=== PATIENT | male | born 1970 | race Asian ===

== ENCOUNTER 2024-10-11 15:25 | Outpatient (AMB) | payer BC, MEDICAID, SELFPAY ==
--- OUTSIDE RECORDS SUMMARY | 2024-10-11 15:28 | XMS_ITS | Encounter Summary ---
Author Organization [facility] Address [address] [place] [address] Care Team Providers Care Meteorological Aide Name Role Phone Pcp, No Primary Care Provider Unavailabl e Reason for Visit * Reason Comments Medication Refill Encounter Details Date Type Department Care Team ([facility] st Contact Info) Description 09/02/2022 Refill [facility] 31 [facility] [address] [place] [phone] Chau Alonzo MD 31 [facility] [address] [place] [address] Causalgia of left lower limb Social History Tobacco Use Types Packs/Day Years Used Date Smoking Tobacco: Former Cigarettes 1 15 0 09/13/2004 - 09/14/2019 Smokeless Tobacco: Never Alcohol Use Standard Drinks/Week Comments Not Currently 0 (1 standard drink = 0.6 oz pur e alcohol) Stopped 08/2019 Sex and Gender Information Value Date Recorded [...] suspected to have Coronavirus/COVID-19? No / Unsure 08/24/2022 9:23 AM EDT documented as of this encounter Plan of Treatment Not on file documented as of this encounter Visit Diagnoses Diagnosis Causalgia of left lower limb documented in this encounter Care Teams Meteorological Aide Relationship Specialty Start Date End Date Pcp, No PCP - General General Medicine 04/04/24 documented as of this encounter
--- NOTE | 2024-10-11 15:30 | MHC.OFFVIS ---
Intake Visit Reasons: urinary incontinence/ neurogenic bladder Intake Note: New Patient is present for incontinence, neurogenic bladder Urology Rx: topiramate,duloxetin PVR:71 ml Blood Thinners:none Bus And Trolley Inspecting Dispatcher Required: No Accompanied by: Child Allergies No Known Allergies Allergy (Verified 10/11/24 15:45) HPI Comments Details: Carlos is a pleasant Senegalese speaking male. He is seen for the following urologic conditions - neurogenic bladder Translation provided by daughter. She is comfortable in his role Neurogenic bladder Prior spine surgery 2 years ago Increased urinary frequency and urgency since procedure No prior anticholinergic medications Trial oxybutynin 10 mg daily [facility] Medical History (Updated 10/11/24 @ 15:57 by Stas Acevedo MD) Synovial cyst of left popliteal space Neurogenic bladder Neuroendocrine tumor of anus Other constipation Work related injury Urinary urgency Urinary incontinence Spinal stenosis of lumbar region with neurogenic claudication Radiculopathy of leg Lumbar radiculopathy Right foot strain Complex regional pain syndrome type 2 of lower extremity Open displaced fracture of first metatarsal bone of left foot Lumbosacral pain Lisfranc's sprain Epidural lipomatosis Crushing injury of left ankle Complication of surgical procedure Multiple closed fractures of metatarsal bone of left foot with routine healing Closed bimalleolar fracture of left ankle with routine healing Thoracic spondylosis Microscopic hematuria Cigarette nicotine dependence without complication Surgical History (Updated 09/25/24 @ 12:08 by Pancho Blount [facility]) History of lumbar laminectomy Review of Systems Const Denies chills and Denies fever(s) Card Reports no additional complaints and Denies syncope Resp Denies cough GI Denies abdominal pain and Denies heartburn Reports as per HPI and Denies change in libido Neuro Denies syncope Psych Denies change in libido Endo Denies change in libido Physical Exam Const General: cooperative, healthy appearing, comfortable and no acute distress Orientation/consciousness: patient oriented x3 HEENT Face and sinus: Yes normal facial exam Mouth: moist mucous membranes Neck Neck: Yes normal visual inspection, Yes full ROM and Yes trachea midline Chest Chest palpation & inspection: normal inspection of the chest Resp Effort & Inspection: normal respiratory effort, able to speak in complete sentences and no respiratory distress GI Inspection: Yes normal to inspection Back/Spine/Pelvis Cervical Spine: normal cervical lordosis Thoracic/Lumbar Spine: thoracic and lumbar spine normal to inspection Skin General skin exam: no rashes or lesions noted Neuro General: patient oriented x3, gait normal, tone normal and moves all extremities Extrem General: Yes normal to inspection and Yes capillary refill normal Office Procedures Post Void Residual Post Residual Void Post Void Residual (PVR): 71 95083-Ccsf Void Residual by ultrasound Results AMB Urinalysis, Automated UA Leukoctes 0 Felton/uL Last Edit by Kirsten Chambers, [place] on 10/11/24 15:50 UA Nitrite Negative Last Edit by [facility], [place] on 10/11/24 15:50 UA Urobilinogen 0.2 mg/dL Last Edit by [facility], [place] on 10/11/24 15:50 UA Protein 0 mg/dL Last Edit by [facility], [place] on 10/11/24 15:50 UA pH 6.0 Last Edit by [facility], [place] on 10/11/24 15:50 UA Blood 0 Micah/uL Last Edit by [facility], [place] on 10/11/24 15:50 UA Specific [place] 1.015 Last Edit by [facility], [place] on 10/11/24 15:50 UA Ketone Negative Last Edit by [facility], [place] on 10/11/24 15:50 UA Bilirubin 0 mg/dL Last Edit by [facility], [place] on 10/11/24 15:50 UA Glucose 0 mg/dL Last Edit by [facility], [place] on 10/11/24 15:50 Results Reviewed Results Reviewed: Laboratory Last Values Urine pH (Auto) 6.0 10/11/24 15:49 Specific [place] (Auto) 1.015 10/11/24 15:49 Urine Protein (Auto) 0 mg/dL 10/11/24 15:49 Glucose (UA)(Auto) 0 mg/dL 10/11/24 15:49 Urine Ketones (Auto) Negative 10/11/24 15:49 Urine Blood (Auto) 0 Micah/uL 10/11/24 15:49 Urine Nitrite (Auto) Negative 10/11/24 15:49 Urine Bilirubin (Auto) 0 mg/dL 10/11/24 15:49 Urine Urobilinogen (Auto) 0.2 mg/dL 10/11/24 15:49 Leukocyte Esterase (Auto) 0 Felton/uL 10/11/24 15:49 Assessment & Plan Assessment & Plan (1) Urinary incontinence: Code(s): R32 - Unspecified urinary incontinence Category: Medical (2) Urinary urgency: Code(s): R39.15 - Urgency of urination Category: Medical (3) Neurogenic bladder: Code(s): N31.9 - Neuromuscular dysfunction of bladder, unspecified Category: Medical Plan Trial oxybutynin Orders: Orders AMB Urinalysis Automated 10/11/24 Z13.9 - Encounter for screening, unspecified Medications: New oxybutynin chloride ER 10 mg PO DAILY 30 tabs 2RF 30 days N31.9 - Neuromuscular dysfunction of bladder, unspecified Patient Instructions: This note is constructed using voice recognition software. While every effort has been made to ensure accuracy line and frame poler errors may have been included. Imaging studies, laboratory and physical exam results were discussed and reviewed in detail. No major barriers to patient understanding were identified. An opportunity to ask questions regarding the treatment plan was provided. All questions were answered. The patient expressed understanding and agreement with the above treatment plan. The patient is aware they should contact our office by phone for worsening of their current condition or the appearance of new urologic symptoms. Compliance is encouraged with any medications and followup testing that is ordered. It is a privilege to participate in the urologic care of your patient. If you have any questions or concerns regarding treatment for the above conditions, or other urologic issues, please do not hesitate to contact me. The office telephone contact is [phone]. Sincerely, Dr Stas Acevedo MD, BEATRIZ [facility] - Urology Compassionate Specialist Care for the Genitourinary System Coding Level of Care Code New Pt Level 4 (20345) Diagnoses Urinary incontinence R32 Urinary urgency R39.15 Neurogenic bladder N31.9 CPT Codes Post Residual Void - PVR CPT Code: 79647-Hhnv Void Residual by ultrasound ([id number])
== END 2024-10-11 16:00 | disposition home or self-care (01) ==
LOC: HO.HUSH 15:26
PROVIDERS: Visit Provider Urology
DX: Z13.9 Encounter for screening, unspecified (principal)

== ENCOUNTER → 2024-10-11 15:25 | Outpatient (BNVA) | payer BC, MEDICAID, SELFPAY | PROVIDERS: Visit Provider Urology | DX: R32 Unspecified urinary incontinence (principal); R39.15 Urgency of urination; N31.9 Neuromuscular dysfunction of bladder, unspecified | CPT/HCPCS: 51798; 81003 ==

== ENCOUNTER 2025-01-17 15:09 | Outpatient (AMB) | payer BC, MEDICAID, SELFPAY ==
--- OUTSIDE RECORDS SUMMARY | 2022-07-21 08:14 | XMS_ITS | Encounter Summary ---
Author Organization [facility] Address [address] [place] [address] Care Team Providers Care Farm Agent Name Role Phone Unavailable Primary Care Provider Unavailabl e Encounter Details Date Type Department Care Team ([facility] st Contact Info) Description 07/21/2022 8:14 AM EDT Hospital Encounter Advanced Radiology [address] [phone] Social History Tobacco Use Types Packs/Day Years Used Date Smoking Tobacco: Former Cigarettes 1 15 0 09/13/2004 - 09/14/2019 Smokeless Tobacco: Never Alcohol Use Standard Drinks/Week Comments Not Currently 0 (1 standard drink = 0.6 oz pur e alcohol) Stopped 08/2019 AUDIT-C Answer Date Recorded Q1: How often do you have a drink containing alcohol? Never 07/18/2024 Q2: How many drinks containi ng alcohol do you have on a typical day when you are drinking? Patient does not drink Q3: How often do you have si x or more drinks on one occasion? Never 07/18/2024 Sex and Gender Information Value Date Recorded Sex Assigned at Male 04/28/2022 10:19 AM EST Legal Sex Male 4:02 PM EDT Gender Identity Male 04/28/2022 10:19 AM EST Sexual Orientation Heterosexual (straight) 04/28 10:19 AM EST COVID-19 Exposure Response Date Recorded In the last 10 days, have yo u been in contact with someone who was confirmed or suspected to have Coronavirus/COVID-19? No / Unsure 09/14/2022 12:59 PM EDT documented as of this encounter Functional Status * Audit-C Score Answer Date of Assessment Author 0 07/18/2024 11:19 AM EDFang Jaramillo RN * Question Answer Date of Assessment Author Q1: How often do you have a drink containing alcohol? Never 07/18/2024 11:19 AM Fang Robert RN Q2: How many drinks containing alcohol do you have on a typical day when you are drinking? Patient does not drink 07/18/2024 11:19 AM Fang Robert RN Q3: How often do you have six or more drinks on one occasion? Never 07/18/2024 11:19 AM Fang Robert RN documented as of this encounter Plan of Treatment Not on file documented as of this encounter Procedures Procedure Name Priority Date/Time Associated Diagnosis Comments ALETA ARCHIVE FOR REFERENCE ONLY MR Routine 07/21/2022 8:15 AM EDT documented in this encounter Results * ALETA Archive for reference only MR (07/21/2022 8:15 AM EDT) Narrative [facility] - 07/21/2022 8:14 AM EDT This order has been auto-finalized and does not contain a result. us File Room Provider IMG DIGITIZE FILMS Final Resu lt [facility] documented in this encounter Visit Diagnoses Not on filedocumented in this encounter
--- NOTE | 2025-01-17 15:17 | A.OFFVIS_ITS ---
Intake Visit Reasons: 3m/PVR Intake Note: Patient is present for 3 mo follow up incontinence, neurogenic bladder Urology Rx: topiramate,duloxetin PVR:0 ml Blood Thinners:none Soft Drink Powder Mixer Required: No Accompanied by: Child Allergies No Known Allergies Allergy (Verified 10/11/24 15:45) HPI Comments Details: Carlos is a pleasant Occitan speaking male. He is seen for the following urologic conditions - neurogenic bladder Translation provided by daughter. She is comfortable in his role Doing well with anticholinergic Significantly reduced urgency and frequency with oxybutynin Ninety day supply prescribed Six-month follow-up Neurogenic bladder Prior spine surgery 2 years ago Increased urinary frequency and urgency since procedure Good response to oxybutynin 10 mg daily [facility] Medical History (Updated 10/11/24 @ 15:57 by Stas Acevedo MD) Synovial cyst of left popliteal space Neurogenic bladder Neuroendocrine tumor of anus Other constipation Work related injury Urinary urgency Urinary incontinence Spinal stenosis of lumbar region with neurogenic claudication Radiculopathy of leg Lumbar radiculopathy Right foot strain Complex regional pain syndrome type 2 of lower extremity Open displaced fracture of first metatarsal bone of left foot Lumbosacral pain Lisfranc's sprain Epidural lipomatosis Crushing injury of left ankle Complication of surgical procedure Multiple closed fractures of metatarsal bone of left foot with routine healing Closed bimalleolar fracture of left ankle with routine healing Thoracic spondylosis Microscopic hematuria Cigarette nicotine dependence without complication Surgical History (Updated 09/25/24 @ 12:08 by Pancho Blount [facility]) History of lumbar laminectomy Review of Systems Const Denies chills and Denies fever(s) Card Reports no additional complaints and Denies syncope Resp Denies cough GI Denies abdominal pain and Denies heartburn Reports as per HPI and Denies change in libido Neuro Denies syncope Psych Denies change in libido Endo Denies change in libido Physical Exam Const General: cooperative, healthy appearing, comfortable and no acute distress Orientation/consciousness: patient oriented x3 HEENT Face and sinus: Yes normal facial exam Mouth: moist mucous membranes Neck Neck: Yes normal visual inspection, Yes full ROM and Yes trachea midline Chest Chest palpation & inspection: normal inspection of the chest Resp Effort & Inspection: normal respiratory effort, able to speak in complete sente nces and no respiratory distress GI Inspection: Yes normal to inspection Back/Spine/Pelvis Cervical Spine: normal cervical lordosis Thoracic/Lumbar Spine: thoracic and lumbar spine normal to inspection Skin General skin exam: no rashes or lesions noted Neuro General: patient oriented x3, gait normal, tone normal and moves all extremities Extrem General: Yes normal to inspection and Yes capillary refill normal Office Procedures Post Void Residual Post Residual Void Post Void Residual (PVR): 0 [id number]-Fuoc Void Residual by ultrasound Assessment & Plan Assessment & Plan (1) Neurogenic bladder: Code(s): N31.9 - Neuromuscular dysfunction of bladder, unspecified Category: Medical (2) Urinary urgency: Code(s): R39.15 - Urgency of urination Category: Medical Plan Continue oxybutynin Six-month follow-up Orders: Orders AMB Urinalysis Automated Today N31.9 - Neuromuscular dysfunction of bladder, unspecified, R32 - Unspecified urinary incontinence, R39.15 - Urgency of urination AMB Post Void Residual by ultrasound Today N31.9 - Neuromuscular dysfunction of bladder, unspecified, R32 - Unspecified urinary incontinence, R39.15 - Urgency of urination Medications: Changed From oxybutynin chloride ER 10 mg PO DAILY 30 days 30 tabs 2RF N31.9 - Neuromuscular dysfunction of bladder, unspecified To oxybutynin chloride ER 10 mg PO DAILY 90 tabs 1RF 90 days N31.9 - Neuromuscular dysfunction of bladder, unspecified Patient Instructions: This note is constructed using voice recognition software. While every effort has been made to ensure accuracy ball point splitter errors may have been included. Imaging studies, laboratory and physical exam results were discussed and reviewed in detail. No major barriers to patient understanding were identified. An opportunity to ask questions regarding the treatment plan was provided. All q uestions were answered. The patient expressed understanding and agreement with the above treatment plan. The patient is aware they should contact our office by phone for worsening of their current condition or the appearance of new urologic symptoms. Compliance is encouraged with any medications and followup testing that is ordered. It is a privilege to participate in the urologic care of your patient. If you have any questions or concerns regarding treatment for the above conditions, or other urologic issues, please do not hesitate to contact me. The office telephone contact is [phone]. Sincerely, Dr Stas Acevedo MD, BEATRIZ [facility] - Urology Compassionate Specialist Care for the Genitourinary System Coding Level of Care Code Est Pt Level 3 (49159) Complex EM visit Add On G2211 Diagnoses Neurogenic bladder N31.9 Urinary urgency R39.15 CPT Codes Post Residual Void - PVR CPT Code: 25911-Utqg Void Residual by ultrasound ([id number])
--- OUTSIDE RECORDS SUMMARY | 2025-01-17 15:43 | XMS_ITS | Encounter Summary ---
Author Organization [facility] Address [address] [place] [address] Care Team Providers Care Food Assembler Kitchen Name Role Phone Pcp, No Primary Care Provider Unavailabl e Encounter Details Date Type Department Care Team (Late st Contact Info) Description 12/05/2023 Scanned Document [facility] Department of Physiatry [place] [address] [place] [phone] Lexi Lama MD [address] [place] [address] Social History Tobacco Use Types Packs/Day Years [...] Orientation Heterosexual (straight) 04/28 10:19 AM EST documented as of this encounter Plan of Treatment Not on file documented as of this encounter Visit Diagnoses Not on filedocumented in this encounter Care Teams Food Assembler Kitchen Relationship Specialty Start Date End Date Pcp, No PCP - General General Medicine 04/04/24 documented as of this encounter
--- OUTSIDE RECORDS SUMMARY | 2025-01-17 15:43 | XMS_ITS | Encounter Summary ---
Author Organization [facility] Address [address] [place] [address] Care Team Providers Care Manager Media Name Role Phone Pcp, No Primary Care Provider Unavailabl e Encounter Details Date Type Department Care Team ([facility] st Contact Info) Description 04/12/2024 Scanned Document [facility] 31 [facility] [address] [place] [phone] Chau Alonzo MD 31 [facility] [address] [place] [address] Social History Tobacco Use Types Packs/Day Years [...] on filedocumented in this encounter Care Teams Manager Media Relationship Specialty Start Date End Date Pcp, No PCP - General General Medicine 04/04/24 documented as of this encounter
--- OUTSIDE RECORDS SUMMARY | 2025-01-17 15:43 | XMS_ITS | Encounter Summary ---
Author Organization [facility] Address [address] [place] [address] Care Team Providers Care Appeals Manager Name Role Phone Pcp, No Primary Care Provider Unavailabl e Encounter Details Date Type Department Care Team ([facility] st Contact Info) Description 01/17/2024 Scanned Document [facility] 31 [facility] [address] [place] [phone] Chau Alonzo MD 31 [facility] [address] [place] [address] Social History Tobacco Use Types Packs/Day Years [...] on filedocumented in this encounter Care Teams Appeals Manager Relationship Specialty Start Date End Date Pcp, No PCP - General General Medicine 04/04/24 documented as of this encounter
--- OUTSIDE RECORDS SUMMARY | 2025-01-17 15:43 | XMS_ITS | Encounter Summary ---
Author Organization [facility] Address [address] [place] [address] Care Team Providers Care Golf Course Laborer Name Role Phone Pcp, No Primary Care Provider Unavailabl e Encounter Details Date Type Department Care Team ([facility] st Contact Info) Description 07/28/2023 Scanned Document [facility] 31 [facility] [address] [place] [phone] Chau Alonzo MD 31 [facility] [address] [place] [address] Social History Tobacco Use Types Packs/Day Years [...] on filedocumented in this encounter Care Teams Golf Course Laborer Relationship Specialty Start Date End Date Pcp, No PCP - General General Medicine 04/04/24 documented as of this encounter
--- OUTSIDE RECORDS SUMMARY | 2025-01-17 15:43 | XMS_ITS | Encounter Summary ---
Author Organization [facility] Address [address] [place] [address] Care Team Providers Care Saddle Stitch Operator Name Role Phone Pcp, No Primary Care Provider Unavailabl e Encounter Details Date Type Department Care Team (Late st Contact Info) Description 10/16/2023 Scanned Document [facility] [address] [phone] Lor Miranda, RN [address] [place], [place] [phone] Social History Tobacco Use Types Packs/Day Years [...] on filedocumented in this encounter Care Teams Saddle Stitch Operator Relationship Specialty Start Date End Date Pcp, No PCP - General General Medicine 04/04/24 documented as of this encounter
--- OUTSIDE RECORDS SUMMARY | 2025-01-17 15:43 | XMS_ITS | Encounter Summary ---
Author Organization [facility] Address [address] [place] [address] Care Team Providers Care Scientific Glass Blower Name Role Phone Pcp, No Primary Care Provider Unavailabl e Encounter Details Date Type Department Care Team ([facility] st Contact Info) Description 05/10/2023 Scanned Document [facility] 31 [facility] [address] [place] [phone] Chau Alonzo MD 31 [facility] [address] [place] [address] Social History Tobacco Use Types Packs/Day Years [...] on filedocumented in this encounter Care Teams Scientific Glass Blower Relationship Specialty Start Date End Date Pcp, No PCP - General General Medicine 04/04/24 documented as of this encounter
--- OUTSIDE RECORDS SUMMARY | 2025-01-17 15:43 | XMS_ITS | Encounter Summary ---
Author Organization [facility] Address [address] [place] [address] Care Team Providers Care Kiln Placer Name Role Phone Pcp, No Primary Care Provider Unavailabl e Reason for Visit * Reason Comments Medication Refill Encounter Details Date Type Department Care Team (Late st Contact Info) Description 12/24/2024 Refill [facility] 31 [facility] [address] [place] [address] Chau Alonzo MD 31 [facility] [address] [place] [address] Complex regional pain syndrome type 2 of left lower extremity; Lumbar radiculopathy; Failed back syndrome of lumbar spine; Crush injury; Work related injury; Neuropathy of left superficial peroneal nerve; Synovial cyst of left popliteal space Social History Tobacco Use Types Packs/Day Years [...] as of this encounter Visit Diagnoses Diagnosis Complex regional pain syndrome type 2 of left lower extremity Lumbar radiculopathy Thoracic or lumbosacral neuritis or radiculitis, unspecified Failed back syndrome of lumbar spine Crush injury Crushing injury of unspecified site Work related injury Neuropathy of left superficial peroneal nerve Synovial cyst of left popliteal space documented in this encounter Care Teams Kiln Placer Relationship Specialty Start Date End Date Pcp, No PCP - General General Medicine 04/04/24 documented as of this encounter
--- OUTSIDE RECORDS SUMMARY | 2025-01-17 15:43 | XMS_ITS | Encounter Summary ---
Author Organization [facility] Address [address] [place] [address] Care Team Providers Care Range Mounter Name Role Phone Pcp, No Primary Care Provider Unavailabl e Encounter Details Date Type Department Care Team (Late st Contact Info) Description 07/28/2023 Scanned Document [facility] 31 [facility] [address] [place] [phone] David Ratliff MD [address] [place] [address] Social History Tobacco Use Types Packs/Day Years [...] on filedocumented in this encounter Care Teams Range Mounter Relationship Specialty Start Date End Date Pcp, No PCP - General General Medicine 04/04/24 documented as of this encounter
--- OUTSIDE RECORDS SUMMARY | 2025-01-17 15:43 | XMS_ITS | Encounter Summary ---
Author Organization [facility] Address [address] [place] [address] Care Team Providers Care District Sales Coordinator Name Role Phone Pcp, No Primary Care Provider Unavailabl e Encounter Details Date Type Department Care Team ([facility] st Contact Info) Description 06/24/2024 Prep for Surgery [facility] 31 [facility] [address] [place] [phone] Chau Alonzo MD 31 [facility] [address] [place] [address] Complex regional pain syndrome type 2 of left lower extremity (Primary Dx) Social History Tobacco Use Types Packs/Day Years [...] pain syndrome type 2 of left lower extremity- Primary documented in this encounter Care Teams District Sales Coordinator Relationship Specialty Start Date End Date Pcp, No PCP - General General Medicine 04/04/24 documented as of this encounter
--- OUTSIDE RECORDS SUMMARY | 2025-01-17 15:43 | XMS_ITS | Clinical Summary ---
Author Organization [facility] Address [address] [place] [address] Care Team Providers Care Plant Floor Automation Manager Name Role Phone Tere White FUNCTIONAL TESTER TYPEWRITERS Primary Care Provider Source Comments PLEASE NOTE, if this patient is a minor, it may be UNLAWFUL to discuss sensitive information that is contained in these records (such as FAMILY PLANNING, MENTAL HEALTH or SUBSTANCE ABUSE) with the minor patient's parent or other person without the patient's specific authorization.[facility] Allergies No known active allergies Medications nortriptyline (PAMELOR) 25 mg capsule T1C PO Q NIGHT, IF WELL TOLERATED AFTER 1 WEEK, INCREASE TO T2C PO QHS 3 Active topiramate (TOPAMAX) 25 mg tablet Take by mouth 2 (two) times daily Active albuterol HFA 90 mcg/actuation inhalerIndications :Bronchitis with bronchospasm Inhale 2 Puffs into the lungs every 4 (four) hours as needed for shortness of breath or wheezing 18 g 5 Active predniSONE (DELTASONE) 20 mg tabletIndications: Bronchitis with bronchospasm Take 1 Tablet by mouth 2 (two) times daily 10 Tablet 5 Active azithromycin (ZITHROMAX Z-JOSE) 250 mg tabletIndications: Bronchitis with bronchospasm Take 2 tabs(500mg) on day 1 and then 1 tab(250mg) once daily for next 4 days. 6 Tablet 5 Active diaper,brief,adult ,disposableIndicat ions:Neurogenic bladder L adult diapers for hx of neurogenic bladder, 8 per day for 30 days per month, use 99 years 100 Each 11 5 Active MISCELLANEOUS MEDICAL SUPPLY MISCIndications:Ne urogenic bladder Please dispense wipes, 8 wipes per day for lifetime use, for hx of neurogenic bladder 200 Each 11 5 Active simvastatin (ZOCOR) 40 mg tabletIndications: Mixed hyperlipidemia Take 1 Tablet by mouth nightly at bedtime. 90 Tablet 1 5 Active Active Problems Problem Noted Date Diagnosed Date Neuroendocrine tumor of anus ([facility] V28) 07/25 Overview (07/25/2024): Patient underwent a colonoscopy with Dr. Mara Rodriguez on 09/17/2021 and was found to have a 4 mm rectal polyp status post cold biopsy forceps, path with well-differentiated neuroendocrine tumor, grade 1, margins positive. In 2021, biopsy results showed that there was no evidence of tumor at the site of the scar. The tumor was completely removed previously. He was supposed to follow up with Dr. Mara Rodriguez, primary GI, in 2 to 3 months for continued surveillance. However, this does not seem to be have been done Neurogenic bladder 07/25/2024 Synovial cyst of left popliteal space 07/25/2024 Other constipation 06/01/2021 Urinary incontinence 05/03/2021 Urinary urgency 05/03/2021 Complication of surgical procedure 02/01/2021 Radiculopathy of leg 11/30/2020 History of lumbar laminectomy 11/02/2020 Complex regional pain syndro me type 2 of left lower extremity 11/02/2020 Overview (07/25/2024): Symptoms most c/w CRPS as primary etiology due to the diffuse nature of symptoms, allodynia. Radiating back and leg pain has features of radiculopathy., Negative EMG for radiculopathy (+ for sup peroneal). MRI Lumbar showed no significant nerve compression (however this does not r/o nerve injury). LSB with mild benefit overall. Follows specialist in [facility] -therapy: topamax 25 mg BID, cymbalta -planning on spinal cord stimulator surgery 08/06/2024 -Patient wearing ankle brace and using walker for ambulation. Lumbosacral pain 07/27/2020 Epidural lipomatosis 07/20/2020 Work related injury 07/20/2020 Lumbar radiculopathy 06/22/2020 Spinal stenosis of lumbar re gion with neurogenic claudication 06/22/2020 Thoracic spondylosis 12/05/2019 Overview (12/05/2019): Thoracic spine 11/20/19 IMPRESSION: Mild thoracic spondylosis. No evidence for fracture. Closed bimalleolar fracture of left ankle with routine healing 12/05/2019 Multiple closed fractures of metatarsal bone of left foot with routine healing 12/05/2019 Crushing injury of left ankle 09/18/2019 Lisfranc's sprain, left, initial encounter 09/17 Open displaced fracture of f irst metatarsal bone of left foot 09/18/2019 Right foot strain 09/18/2019 Cigarette nicotine dependence without complicati on 01/29/2016 Microscopic hematuria 01/29/2016 Immunizations Immunization Administration Dates Next Due Flu, Preservative Free 02/08/2022,2020,01/11/2020,05/27,03/19/2018,01/29/2016 MODERNA COVID-19 VACCINE BIV ALENT, BLUE CAP, 6M+ 11/29/2022 Moderna COVID-19 Vaccine, re d cap blue label, 12+ Primary Series 04/19/2021,09/02/2020,08/05/2020 PNEUMOCOCCAL CONJUGATE PCV 13 01/29/2016 PNEUMOCOCCAL POLYSACCHARIDE PPV23 (Pneumovax 23) 05/27/2019 TDAP 07/14/2017,11/28/2014 ZOSTER VACCINE, RECOMBINANT (SHINGRIX) 4,11/29/2022 Family History Medical History Relation Name Comments Kidney disease Mother Relation Name Status Comments Father Mother Social History Tobacco Use Types Packs/Day Years Used Date Smoking Tobacco: Former Smokeless Tobacco: Former Tobacco Cessation:Counseling Given: Yes Comments:1-2 a day Alcohol Use Standard Drinks/Week Comments Yes 4 (1 standard drink = 0.6 oz pur e alcohol) occassionally Social Connections Answer Date Recorded Connectedness 0 11/29/2022 Financial Resource Strain Answer Date R ecorded Financial Resource Strain 0 2022 Stress Answer Date Recorded Stress 0 11/29/2022 Physical Activity Answer Date Recorded Physical Activity 0 12/15/2018 Food Insecurity Answer Date Recorded Food 0 11/29/2022 Transportation Needs Answer Date Record ed Transportation 0 11/29/2022 Housing Stability Answer Date Recorded Housing 0 11/29/2022 Safety and Environment Answer Date Jakob rded Safety 0 11/29/2022 Utilities Answer Date Recorded Utilities 0 11/29/2022 Employment Answer Date Recorded Employment 0 12/15/2018 Sex and Gender Information Value Date Recorded Sex Assigned at Male 02/01/2018 4:13 PM PDT Legal Sex Male 11:36 AM PDT Gender Identity Male 02/01/2018 4:13 PM PDT Sexual Orientation Straight 02/01/2018 4: 13 PM PDT Last Filed Vital Signs Vital Sign Reading Time Taken Comments Blood Pressure 130/80 07/25/2024 2:55 PM EDT Pulse 74 07/25/2024 2:55 PM EDT Temperature 36.8 C (98.2 F) 07/25/2024 2:55 PM EDT Respiratory Rate 18 07/25/2024 2:55 PM EDT Oxygen Saturation 98% 11/29/2022 3:50 PM EDT Inhaled Oxygen Concentration - - Weight 74.8 kg (165 lb) 07/25/2024 2:55 PM EDT Height 154.9 cm (5' 1 ) 07/25/2024 2:55 PM EDT Body Mass Index 31.18 07/25/2024 2:55 PM EDT Plan of Treatment Upcoming Encounters Date Type Department Care Team (Late st Contact Info) Description 01/28/2025 3:00 PM EDT Office Visit [facility] [address] [place] [address] Tere White FNP [address] [place] [address] Lara Anglin [address] [place] [address] Health Maintenance Due Date Last Done Comments Dental Perio Charting [address] Colonography 2017 Colonoscopy 2017 Colorectal Cancer Screening 2017 FIT/gFOBT 2017 Fecal DNA 2017 Flexible Sigmoidoscopy 2017 Imm-Pneumococcal 50+ (3 of 3 - PCV20 or PCV21) 05/27/2024 05/27/2019, 01/29/2016 Dental BW 07/18/2024 07/17/2023 Dental Examination 07/18/2024 07/17/2023 Annual Wellness (Adult): Indicated (All Coverage) 11/29/2024 11/30/2023, 11/29/2022, 05/27/2019, Additional history exists Tobacco Cessation Counseling (#1) 11/29/2024 11/29/2022, 05/27/2019, 03/19/2018 Diabetes Screening 11/30/2024 12/01/2023, 0 11/29/2022, 10/30/2020, Additional history exists Lipid Screening 11/30/2024 12/01/2023, 08/0 11/2022, 03/03/2020, Additional history exists [id number] ( season) 2024 11/29/2022, 04/19/2021, 09/02/2020, Additional history exists Imm-Influenza (#1) 2024 02/08/2022, 1 , 01/11/2020, Additional history exists Anxiety Screening 07/25/2025 07/25/2024 Hypertension Screening (#1) 07/25/2025 Tobacco Screening 07/26/2025 07/26/2024, , 05/27/2019, Additional history exists Imm-DTaP/Tdap/Td (3 - Td or Tdap) 07/15/2027 018, 11/28/2014 Dental FMX/Pano 07/18/2028 07/17/2023 HIV Screening Completed 02/01/2018 Hepatitis B Screening Completed 11/29/2022 Hepatitis C Screening Completed 11/29/2022 Imm-Zoster, Recombinant Completed 11/30/2023, 11/29 Alcohol and Drug Screen Completed 07/26/19, 11/30/2023, 11/29/2022, Additional history exists Depression Annual Screen Completed 07/25/2024 Imm-Hepatitis B Discontinued Procedures Procedure Name Priority Date/Time Associated Diagnosis Comments COMPREHENSIVE METABOLIC PANEL Routine 12/01/2023 8:49 AM EDT Annual physical exam LIPID PANEL Routine 12/01/2023 8:49 AM EDT Annual physical exam Full INTRAORAL - COMP SERIES OF RADIOGRAPHIC IMAGES Routine 07/17/2023 2:20 PM EDT Tooth pain Full COMP ORAL EVALUATION - NEW/ESTABLISHED PATIENT Routine 07/17/2023 2:20 PM EDT Tooth pain HEPATITIS B SURF ANTIBODY HBSAB Routine 11/29/2022 4:28 PM EDT Need for hepatitis B screening test HEPATITIS C AB W/RFLX HCV RNA, QT, RT PCR Routine 11/29/2022 4:28 PM EDT Screening for viral disease ANTIBODY HIV-1&HIV-2 SINGLE RESULT Routine 02/01/2018 11:50 AM EDT Encounter for medical examination to establish care from Last 3 Months or Most Recently Relevant to Health Maintenance Results * (ABNORMAL) LIPID PANEL (12/01/2023 8:49 AM EDT) CHOLESTEROL, TOTAL 195 <200 mg/dL [facility] HDL CHOLESTEROL 49 > OR = 40 mg/dL [facility] TRIGLYCERIDES 200(H) <150 mg/dL [facility] Comment: If a non-fasting specimen was collected, consider repeat triglyceride testing on a fasting specimen if clinically indicated. Amaya et al. J. of Clin. Lipidol. 2015;9:129-169. LDL-CHOLESTEROL 114(H) 99 mg/dL (calc) [employer] [facility] Comment: Reference range: <100 Desirable range <100 mg/dL for primary prevention; <70 mg/dL for patients with CHD or diabetic patients with > or = 2 CHD risk factors. LDL-C is now calculated using the Harvey calculation, which is a validated novel method providing better accuracy than the Friedewald equation in the estimation of LDL-C. Deven ALMEIDA et al. ROXI. 2013;310(19): 8861-1873 (http://education.[employer]/faq/SQK296) CHOL/HDLC RATIO 4.0 <5.0 (calc) [employer] [facility] NON-HDL CHOLESTEROL 146(H) <130 mg/dL (calc) [facility] Comment: For patients with diabetes plus 1 major ASCVD risk factor, treating to a non-HDL-C goal of <100 mg/dL (LDL-C of <70 mg/dL) is considered a therapeutic option. Blood Blood / Unknown 12/01/2023 8 :49 AM EDT 12/01/2023 8:50 AM EDT Megan GALLARDO LAB - BLOOD DRAW Final Result [employer] [address] [address], [employer] [address] [address] * COMPREHENSIVE METABOLIC PANEL (12/01/2023 8:49 AM EDT) GLUCOSE 84 65 - 99 mg/dL [facility] Comment: Fasting reference interval UREA NITROGEN (BUN) 9 7 - 25 mg/dL [facility] CREATININE (blood) 0.77 0.70 - 1.30 mg/dL [facility] EGFR 108 > OR = 60 mL/min/1. 73m2 [facility] BUN/CREATININE RATIO SEE NOTE: [facility] Comment: Not Reported: BUN and Creatinine are within reference range. SODIUM 139 135 - 146 mmol/L [facility] POTASSIUM 4.2 3.5 - 5.3 mmol/L [facility] CHLORIDE 103 98 - 110 mmol/L [facility] CARBON DIOXIDE 27 20 - 32 mmol/L [facility] CALCIUM 9.7 8.6 - 10.3 mg/dL [facility] PROTEIN, TOTAL 7.4 6.1 - 8.1 g/dL [facility] ALBUMIN 4.6 3.6 - 5.1 g/dL [facility] GLOBULIN 2.8 1.9 - 3.7 g/dL (calc) [facility] ALBUMIN/GLOBULI N RATIO 1.6 1.0 - 2.5 (calc) [facility] BILIRUBIN, TOTAL 1.2 0.2 - 1.2 mg/dL [facility] ALKALINE PHOSPHATASE 51 35 - 144 U/L [facility] AST 14 10 - 35 U/L [facility] ALT 25 9 - 46 U/L [facility] Blood Blood / Unknown 12/01/2023 8 :49 AM EDT 12/01/2023 8:50 AM EDT us Megan GALLARDO LAB - BLOOD DRAW Edited Result - Final Performing Organization Address [facility] Co de Phone Number [employer] [address] [address], [employer] [address] [address] * Hep C Ab w/Rflx (11/29/2022 4:28 PM EDT) HEPATITIS C ANTIBODY NON-REACT BIA NON-REACT BIA [facility] Comment: HCV antibody was non-reactive. There is no laboratory evidence of HCV infection. In most cases, no further action is required. However, if recent HCV exposure is suspected, a test for HCV RNA (test code 24895) is suggested. For additional information please refer to http://education.[employer]/faq/IAO67t9 (This link is being provided for informational/ educational purposes only.) Blood Blood / Unknown 11/29/2022 4 :28 PM EDT 11/29/2022 4:29 PM EDT Debbie Mota PA-C LAB - BLOOD DRAW Final Resul t Performing Organization Address [facility] Co de Phone Number [employer] [address] [address], [employer] [address] [address] * (ABNORMAL) Hep B Surface Antibody (11/29/2022 4:28 PM EDT) HEPATITIS B SURFACE ANTIBODY QL REACTIVE( A) NON-REACT BIA [facility] Blood Blood / Unknown 11/29/2022 4 :28 PM EDT 11/29/2022 4:29 PM EDT Debbie Mota PA-C LAB - BLOOD DRAW Final Resul t [facility] [address] [address], [facility] [address] [place] [address] * HIV-1 & HIV-2 ANTIBODIES (02/01/2018 11:50 AM EDT) [facility] HIV 1 AND 2 ANTIBODY SCREEN NEGATIVE NEGATIVE [facility] Comment: This assay is a 4th generation assay allowing for earlier detection of HIV infection by detecting the presence of the HIV-1 p24 antigen as well as the traditional antibodies to HIV type 1 (including group O) and type 2. Use of a 4th generation assay is the current CDC recommendation for HIV screening. Blood specimen (specimen) Blood / Unknown 02/01/2018 11:50 AM EDT 02/01/2018 1:00 PM EDT Narrative [facility] - 02/01/2018 7:43 PM EDT [facility] [employer] [address] [place] [address] [place] [id number] ORD# [id number] Venkat Enamorado NP LAB - BLOOD DRAW Final Result Performing Organization Address City/[facility]/ZIP Co de Phone Number [address] [address], from Last 3 Months or Most Recently Relevant to Health Maintenance Insurance [employer]ICAID OR MEDICAID DENTAL [facility]/ [place] OR MEDICAID Care Teams Plant Floor Automation Manager Relationship Specialty Start Date End Date Tere White FNP [address] [place] [address] PCP - General Internal Medicine 12/17/24
--- OUTSIDE RECORDS SUMMARY | 2025-01-17 15:43 | XMS_ITS ---
Author Name [facility] Organization Unknown History of Medication Use Medication Directions Dispensed Refills Start Date End Date Stat DULoxetine 30 mg oral delayed release capsule DULoxetine 30 mg oral delayed release capsule 09/11/2024 active topiramate 25 mg oral tablet topiramate 25 mg oral tablet 09/11/2024 active HYDROcodone-acetaminophe n (NORCO) 5-325 mg per tablet Take 1 tablet by mouth 4 times daily (every 6 hours) as needed for moderate pain or severe pain. Max Daily Amount: 4 tablets 08/06/2024 active albuterol (PROVENTIL HFA; VENTOLIN HFA) 108 (90 Base) MCG/ACT inhaler Inhale 2 puffs every 4 (four) hours as needed. 05/20/2024 active DULoxetine (CYMBALTA) 30 MG capsule T1C PO D 05/17/2024 active topiramate (TOPAMAX) 25 MG tablet T1T PO Q NIGHT AND IF WELL TOLERATED AFTER 5-7 DAYS, THEN INCREASE TO 1 TABLET BID 11/24/2023 4 active topiramate (TOPAMAX) 25 MG tablet Take 1 tablet (25 mg total) by mouth 2 (two) times a day. 10/13/2023 4 active nortriptyline (PAMELOR) 25 MG capsule Take 1 capsule (25 mg total) by mouth nightly. For 1 week then stop 08/24/2022 4 active pregabalin (LYRICA) 75 MG capsule Take 2 capsules (150 mg total) by mouth 3 (three) times a day. 07/20/2022 3 active nortriptyline (PAMELOR) 10 MG capsule Take 1 capsule (10 mg total) by mouth nightly. If well tolerated after 1 week, increase to 20mg (2 cap) qHS 07/20/2022 3 aborted methylPREDNISolone (MEDROL DOSEPAK) 4 MG tablet follow package directions 07/05/2022 active methylPREDNISolone (MEDROL DOSEPAK) 4 MG tablet follow package directions 06/29/2022 3 active simvastatin (ZOCOR) 40 MG tablet Take 40 mg by mouth nightly. 05/27/2022 active lidocaine (LIDODERM) 5 % patch APPLY 2 PATCH Daily PRN pain 06/08/2020 active cyclobenzaprine (FLEXERIL) 10 MG tablet Take by mouth. 09/27/2019 active cyclobenzaprine (FLEXERIL) 10 MG tablet Take 1 tablet (10 mg total) by mouth as needed. 09/27/2019 active Problems Problem Status Onset Date Problem Type Date of Resolution Source CHRONIC PAIN SYNDROME active 2024-09-11 ProblemAct [facility] MYALGIA, UNSPECIFIED SITE active 2024-09-11 ProblemAct [facility] CAUSALGIA OF UNSPECIFIED LOWER LIMB active 2024-09-11 ProblemAct [facility] Reflex sympathetic dystrophy active 2022-06-01 ProblemAct [facility] Complex regional pain syndrome type 2 of left lower extremity active 2024-06-24 ProblemAct [facility] Failed back syndrome of lumbar spine active EncounterDiagnosisAct [facility] Neuropathy of left superficial peroneal nerve active EncounterDiagnosisAct [facility] injury active EncounterDiagnosisAct [facility] Synovial cyst of left popliteal space active EncounterDiagnosisAct [facility] Encounters Encounter Type Encounter Reason Primary Diagnosis Location Date Ambulatory [facility] 09/11/2024 [facility] 08/14/2024 [facility] 08/06/2024 Ambulatory 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 [place] [facility] 08/06/2024 [facility] [place] [facility] 05/29/2024 Ambulatory [place] [facility] 05/07/2024 Ambulatory Pain in left knee Pain in left knee [facility] 05/07/2024 Ambulatory 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 [place] [facility] 04/04/2024 [facility] 02/01/2024 [facility] 12/20/2023 [facility] 10/13/2023 [facility] 09/08/2023 [facility] 07/26/2023 Ambulatory 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 [facility] 06/28/2023 Ambulatory 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 [facility] 05/10/2023 Ambulatory 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 [facility] 04/12/2023 Ambulatory 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 [facility] 03/22/2023 Ambulatory 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 [facility] 03/01/2023 Ambulatory Causalgia of lef t lower limb [facility] 09/14/2022 Ambulatory Causalgia of lef t lower limb [facility] 08/24/2022 [facility] 07/21/2022 Ambulatory Causalgia of lef t lower limb [facility] 07/20/2022 Ambulatory Causalgia of lef t lower limb [facility] 06/29/2022 Ambulatory Causalgia of lef t lower limb [facility] 06/01/2022 Care Team Organization Name Specialty Phone Email Start Date End Da te [facility] PCP [facility] 08/09/2024 09/14/2024 [facility] NO PCP Primary Care 04/04/2024 [facility] CHEMO BLOCK, Primary Care 08/21/2023 024 [facility] 08/07/2024 [facility] 06/01/2022 09/14/2024 [facility] 06/01/2022 06/01/2022 [facility] JOSE F ELIZABETH Primary Care 09/29/2021 09/29/2021
--- OUTSIDE RECORDS SUMMARY | 2025-01-17 15:43 | XMS_ITS | Clinical Summary ---
Author Organization [facility] Address [address] [place] [address] Care Team Providers Care Cable Stretcher And Tester Name Role Phone Pcp, No Primary Care Provider Unavailabl e Allergies No known active allergies Medications cyclobenzaprine (FLEXERIL) 10 MG tablet Take 1 tablet (10 mg total) by mouth as needed. 0 Active simvastatin (ZOCOR) 40 MG tablet Take 1 tablet (40 mg total) by mouth nightly. 3 Active gabapentin (NEURONTIN) 300 MG capsuleIndicatio ns:Complex regional pain syndrome type 2 of left lower extremity,Lumbar radiculopathy,Fa iled back syndrome of lumbar spine,Crush injury Take 1 capsule (300 mg total) by mouth nightly. If well tolerated: After 5 days inc to 1 cap PO BID, then after 5 days inc to 1 cap PO TID. 90 capsule 1 4 Active DULoxetine (CYMBALTA) 30 MG capsuleIndicatio ns:Complex regional pain syndrome type 2 of left lower extremity,Lumbar radiculopathy,Fa iled back syndrome of lumbar spine T1C PO D 30 capsule 1 5 Active Additional Information Patient taking differently: 30 mg Oral Every morning, Reason: Other, Reported on 07/18/2024 topiramate (TOPAMAX) 25 MG tabletIndication s:Complex regional pain syndrome type 2 of left lower extremity,Lumbar radiculopathy,Fa iled back syndrome of lumbar spine,Crush injury,Work related injury,Neuropath y of left superficial peroneal nerve,Synovial cyst of left popliteal space Take 1 tablet (25 mg total) by mouth 2 (two) times a day. 60 tablet 1 5 Active albuterol (PROVENTIL HFA; VENTOLIN HFA) 108 (90 Base) MCG/ACT inhaler Inhale 2 puffs every 4 (four) hours as needed. 5 Active HYDROcodone-acet aminophen (NORCO) 5-325 mg per tabletIndication s:Complex regional pain syndrome type 2 of left lower extremity,Crush injury,Failed back syndrome of lumbar spine Take 1 tablet by mouth 4 times daily (every 6 hours) as needed for moderate pain or severe pain. Max Daily Amount: 4 tablets 12 tablet 5 Active Active Problems Problem Noted Date Diagnosed Date Complex regional pain syndro me type 2 of left lower extremity 06/24/2024 Reflex sympathetic dystrophy 06/01/2022 Encounters Date Type Department Care Team Description 12/24/2024 Refill [facility] [address] [place] [phone] Chau Alonzo MD Complex regional pain syndrome type 2 of left lower extremity; Lumbar radiculopathy; Failed back syndrome of lumbar spine; Crush injury; Work related injury; Neuropathy of left superficial peroneal nerve; Synovial cyst of left popliteal space from Last 3 Months Social History Tobacco Use Types Packs/Day Years Used Date Smoking Tobacco: Former Cigarettes 1 15 0 09/13/2004 - 09/14/2019 Smokeless Tobacco: Never Tobacco Cessation:Counseling Given: Not Answered Alcohol Use Standard Drinks/Week Comments Not Currently [...] Orientation Heterosexual (straight) 04/28 10:19 AM EST Last Filed Vital Signs Vital Sign Reading Time Taken Comments Blood Pressure 149/77 08/06/2024 10:00 AM EDT Pulse 62 08/06/2024 10:00 AM EDT Temperature 36.4 C (97.5 F) 08/06/2024 6:30 AM EDT Respiratory Rate 15 08/06/2024 10:00 AM EDT Oxygen Saturation 98% 08/06/2024 10:00 AM EDT Inhaled Oxygen Concentration - - Weight 77.1 kg (170 lb) 07/18/2024 11:17 AM EDT Height 170.2 cm (5' 7 ) 07/18/2024 11:17 AM EDT Body Mass Index 26.63 07/18/2024 11:17 AM EDT Plan of Treatment Health Maintenance Due Date Last Done Comments Hepatitis C Virus Screening 1972 DTaP/Tdap/Td Vaccines (1 - Tdap) 1991 Hepatitis B Vaccines (1 of 3 - 19+ 3-dose series) 1991 Colonoscopy 2017 Pneumococcal Vaccines 50+ (1 of 1 - PCV) 2022 Zoster (Shingles) Vaccine (1 of 2) 2022 Influenza Vaccine 11/22/2024 02/08/2022, , 01/11/2020, Additional history exists COVID-19 Vaccine (2024-2 6 season) 2024 11/29/2022, 04/19/2021, 09/02/2020, Additional history exists HIV Screening Completed 02/01/2018 Medical Devices Implanted Type Area Card Runner Device Identifier Shelf Expiration Date Model / Serial / Lot Inteltrial2 Kit Nerve Stimulator Surescan Trl Lead 1x8 External And Boot - [id number] Implanted:Qty: 1 on 08/06/2024 by Chau Alonzo MD at [facility] Lead N/A: Back [employer] MINIMALLY INVASIVE T INTELTRIAL [id number] Medtronic External Neurostimulator (Ens) Boot - [id number] Implanted:Qty: 1 on 08/06/2024 at [facility] Stimulator Back [employer] MINIMALLY INVASIVE T 02/08/2025 [id number] / [id number] / [id number] Kit Accessory .133in Injex Aggie Baso4 Biwing Flexible Removal - [id number] Implanted:Qty: 1 on 08/06/2024 by Chau Alonzo MD at [facility] Stimulator N/A: Back [employer] MINIMALLY INVASIVE T 10/18/2027 [id number] / / [id number] Neurostimulator Implant [id number] Intellis Uco90bz Nr Battery - [id number] Implanted:Qty: 1 on 08/06/2024 by Chau Alonzo MD at [facility] Stimulator N/A: Back [employer] MINIMALLY INVASIVE T 02/25/2026 [id number] / [id number] / [id number] Kit Accessory .133in Injex Aggie Baso4 Biwing Flexible Removal - [id number] Implanted:Qty: 1 on 08/06/2024 by Chau Alonzo MD at [facility] Stimulator N/A: Back [employer] MINIMALLY INVASIVE T 10/18/2027 [id number] / / [id number] Vectris 1x8 Compact Trial Screening Implanted:Qty: 1 on 08/06/2024 by Chau Alonzo MD at [facility] N/A: Back 12/07/2027 / [id number] / [id number] Vectris 1x8 Compact Trial Screening Implanted:Qty: 1 on 08/06/2024 by Chau Alonzo MD at [facility] N/A: Back 05/03/2028 / [id number] / [id number] Insurance WORKER[employer] Member Subscriber Plan / Payer (Ef fective 2019-Present) Name:Carlos Nicole Relation to Subscriber:Self Name:Carlos Nicole Payer ID:Not on file Group ID:Not on file Type:Workers Compensation Address: [address] [place] [address] [facility] [employer] Member Subscriber Plan / Payer ( fective 2019-Present) Name:Carlos Nicole Relation to Subscriber:Self Name:Carlos Nicole Payer ID:Not on file Group ID:Not on file Type:Workers Compensation Address: [address] [place] [address] Care Teams Cable Stretcher And Tester Relationship Specialty Start Date End Date Pcp, No PCP - General General Medicine 04/04/24
--- OUTSIDE RECORDS SUMMARY | 2025-01-17 15:43 | XMS_ITS | Encounter Summary ---
Author Organization [facility] Address [address] [place] [address] Care Team Providers Care Teller Head Name Role Phone Pcp, No Primary Care Provider Unavailabl e Encounter Details Date Type Department Care Team ([facility] st Contact Info) Description 01/01/2024 Scanned Document [facility] [address] [facility] [address] [place] [phone] Chau Alonzo MD 31 [facility] [address] [place] [address] Social History Tobacco Use Types Packs/Day Years [...] on filedocumented in this encounter Care Teams Teller Head Relationship Specialty Start Date End Date Pcp, No PCP - General General Medicine 04/04/24 documented as of this encounter
--- OUTSIDE RECORDS SUMMARY | 2025-01-17 15:43 | XMS_ITS | Encounter Summary ---
Author Organization [facility] Address [address] [place] [address] Care Team Providers Care Director Translation Name Role Phone Pcp, No Primary Care Provider Unavailabl e Encounter Details Date Type Department Care Team ([facility] st Contact Info) Description 06/24/2024 Scanned Document [facility] 31 [facility] [address] [place] [phone] Chau Alonzo MD 31 [facility] [address] [place] [address] Social History Tobacco Use Types Packs/Day Years [...] on filedocumented in this encounter Care Teams Director Translation Relationship Specialty Start Date End Date Pcp, No PCP - General General Medicine 04/04/24 documented as of this encounter
--- OUTSIDE RECORDS SUMMARY | 2025-01-17 15:43 | XMS_ITS | Clinical Summary ---
Author Organization [facility] Address [address] [place] [address] Care Team Providers Care Awake Overnight Monitor Name Role Phone Richard Fitzgerald MD Primary Care Provider [phone] Allergies No known active allergies Medications Medication Sig Dispensed Refills Start Date End Date Status Vibegron (Gemtesa) 75 MG TABS Take by mouth. 0 Active Active Problems Problem Noted Date Diagnosed Date Numbness and tingling of left lower extremity Status post ankle fusion 08/25/2021 Bulge of lumbar disc without myelopathy 08/26/19 22 Left lumbar radiculitis 08/25/2021 Sprain of thoracic spine, subsequent encounter 0 08/25/2021 Other constipation 06/01/2021 Urinary urgency 05/03/2021 Urinary incontinence 05/03/2021 Post laminectomy syndrome 02/01/2021 Complication of surgical procedure 02/01/2021 Radiculopathy of leg 11/30/2020 Pain of left lower extremity 11/02/2020 History of lumbar laminectomy 11/02/2020 Lumbar stenosis 10/22/2020 Low back pain 07/27/2020 Epidural lipomatosis 07/20/2020 Work related injury 07/20/2020 Sprain, lumbar, subsequent encounter 06/22/2020 Lumbar radiculopathy 06/22/2020 Thoracic spondylosis 12/05/2019 Overview: Thoracic spine 11/20/19 IMPRESSION: Mild thoracic spondylosis. No evidence for fracture. Injury, crush, foot, left, subsequent encounter 09/18/2019 Crushing injury of left ankle 09/18/2019 Right foot strain 09/18/2019 Lisfranc's sprain, left, initial encounter 09/17 Open displaced fracture of f irst metatarsal bone of left foot 09/18/2019 Multiple closed fractures of metatarsal bone of left foot with routine healing 09/18/2019 Closed bimalleolar fracture of left ankle with routine healing 09/18/2019 Cigarette nicotine dependence without complicati on 01/29/2016 Microscopic hematuria 01/29/2016 Immunizations Name Administration Dates Next Due Covid-19 (Moderna 12+) 100mc g/0.5mL dosage 04/19/2021,09/02/2020,08/05/2020 Influenza Quad (Fluarix/Fluzone/FluLaval) 0.5mL (SD-IIV4) 02/04/2021,01/11/2020,05/27/2019,03/19,01/29/2016 Pneumococcal Conjugate PCV13 01/29/2016 Pneumococcal Polysaccharide PPSV23 05/27/2019 Tdap 07/14/2017,11/28/2014 Family History Medical History Relation Name Comments No Sig Med Hx Father No Sig Med Hx Mother Bone cancer Neg Hx Colon cancer Neg Hx Colon polyps Neg Hx Relation Name Status Comments Father Mother Social History Tobacco Use Types Packs/Day Years Used Date Smoking Tobacco: Former Cigarettes 0.5 Q uit: 10/16/2019 Smokeless Tobacco: Never Comments:quit 2 months ago Alcohol Use Standard Drinks/Week Comments No 0 (1 standard drink = 0.6 oz pur e alcohol) Sex and Gender Information Value Date Recorded Sex Assigned at Male 09/17/2019 5:05 PM EDT Gender Identity Male 02/20/2020 3:46 PM EDT Sexual Orientation Not on file Job Start Date Occupation Industry Not on file Not on file Not on file Last Filed Vital Signs Vital Sign Reading Time Taken Comments Blood Pressure 137/91 09/29/2021 9:45 AM EDT Pulse 53 09/29/2021 9:45 AM EDT Temperature 36.7 C (98 F) 09/29/2021 7:01 AM EDT Respiratory Rate 16 09/29/2021 9:45 AM EDT Oxygen Saturation 100% 09/29/2021 9:45 AM EDT Inhaled Oxygen Concentration - - Weight 73.5 kg (162 lb) 09/27/2021 4:26 PM EDT Height 162.6 cm (5' 4 ) 09/27/2021 4:26 PM EDT Body Mass Index 27.81 09/27/2021 4:26 PM EDT Plan of Treatment Health Maintenance Due Date Last Done Comments Hepatitis B Vaccines (1 of 3 - 3-dose series) 1972 Hepatitis C Screening 1972 Depression Screening 1984 Preventative Health Evaluation 1990 Tobacco Cessation Counseling 1990 Colon Cancer Screening (Colonoscopy) 2017 BMI Counseling 12/30/2020 12/31/2019, 10/23, 10/16/2019, Additional history exists Shingrix-Zoster Vaccine (1 of 2) 2022 COVID-19 Vaccine (4 - season) 2024 04/19/2021, 09/02/2020, 08/05/2020 Influenza Vaccine (#1) 2024 , 01/11/2020, 05/27/2019, Additional history exists DTap / Tdap / Td (3 - Td or Tdap) 07/15/2027 07/14/2017, 11/28/2014 Pneumococcal Vaccine (3 of 3 - PPSV23 or PCV20) 2037 05/27/2019, 01/29/2016 RSV Ped < 20 months Aged Out No longe r eligible based on patient's age to complete this topic Medical Devices Implanted Type Area Cellular Phone Repairer Device Identifier Shelf Expiration Date Model / Serial / Lot Sponge Surgiflo 8ml Hemostatic Matrix Absorbable Latex Free - [id number] - [id number] Implanted:Qty : 3 on 10/21/2020 by Blayne Steel MD at [facility] and [facility] Hemostatic Agent Posterior : Spine Lumbar [employer] 05/24/2022 [id number] / / [id number] Device Vistaseal 4ml Closure - [id number] - [id number] Implanted:Qty : 1 on 10/21/2020 by Blayne Steel MD at [facility] and [facility] Hemostatic Agent Posterior : Spine Lumbar [employer] 02/23/2022 [id number] / / [id number] Graft Skin Amnioband L3cm X W2cm Allograft (6tsqcm) - [id number] - [id number] Implanted:Qty : 6 on 10/23/2019 by Chen Floyd, DPM at [facility] Skin Substitute Left: Foot [employer]OSKELET[employer] FNDTN 01/01/2022 [id number] / [id number] / Screw Asnis Iii Partial Thread 60mm 4mm Yolanda [employer] - [id number] - [id number] Implanted:Qty : 1 on 09/27/2019 by Chen Floyd, DPM at [facility] Left: Ankle [employer] [id number] / / Screw Bone T8 Full Thread L16 Mm Od2.4 Mm Lock Stardrive - [id number] - [id number] Implanted:Qty : 2 on 09/27/2019 by Chen Floyd, DPM at [facility] Left: Ankle [employer]IA [employer] [id number] / / 2.4mm Narrow Locking Plates Implanted:Qty : 1 on 09/27/2019 by Chen Floyd, DPM at [facility] Left: Ankle [id number] / / Plate Bone Variax Narrow T L47 Mm 5 Hole Lock Nonsterile - [id number] - [id number] Implanted:Qty : 1 on 09/27/2019 by Chen Floyd, DPM at [facility] Left: Ankle [employer] [id number] / / Screw Asnis Iii Partial Thread 44mm 4mm Yolanda Low Profile - [id number] - [id number] Implanted:Qty : 1 on 09/27/2019 by Chen Floyd, DPM at [facility] Left: Ankle [employer] [id number] / / Screw Locking T10 3.5mm X 14mm - [id number] - [id number] Implanted:Qty : 5 on 09/27/2019 by Chen Floyd, DPM at [facility] Left: Ankle [employer] [id number] / / 1/3 Tubular Plate Implanted:Qty : 1 on 09/27/2019 by Chen Floyd DPM at [facility] and Med Left: Ankle AMALIA SEAN [id number] / / Vivigen Cellular Bone [facility] - [id number] - [id number] Implanted:Qty : 1 on 09/27/2019 by Chen Floyd DPM at [facility] Left: Ankle [employer] 09/11/2020- / [id number] / Screw Bone Variax T8 F-Thread L16 Mm Od2.7 Mm Foot Ankle - [id number] - [id number] Implanted:Qty : 2 on 09/27/2019 by Chen Floyd DPM at [facility] Left: Ankle [employer] [id number] / / 2.7mm Locking Screws Implanted:Qty : 1 on 09/27/2019 by Chen Floyd, ZAINM at [facility] Left: Ankle [id number] / / Screw Bone Variax T8 L13 Mm Od2.7 Mm Lock Nonsterile - [id number] - [id number] Implanted:Qty : 1 on 09/27/2019 by Chen Floyd, ZAINM at [facility] Left: Ankle [employer]IA [employer] [id number] / / Explanted Type Area Cellular Phone Repairer Device Identifier Shelf Expiration Date Model / Serial / Lot Screw Bone Variax T8 F-Thread L16 Mm Od2.7 Mm Foot Ankle - [id number] - [id number] Explanted:Qty: 1 on 09/27/2019 by Chen Floyd DPM at [facility] Left: Ankle AM[employer]IA [employer] [id number] / / Advance Directives For more information, please contact: [phone] Latest Code Status on File Code Status Date Activated Date Inactivated Comments Full Code 10/21/2020 1:37 PM 10/27/2020 8:51 PM This c ode status was ascertained in the following way: per living will or healthcare instructions . Code Status History Code Status Date Activated Date Inactivated Comments Full Code 10/23/2019 11:18 AM 10/23/2019 9:15 PM This c ode status was ascertained in the following way: discussion with patient. Full Code 09/27/2019 9:16 AM 09/27/2019 11:33 PM This c ode status was ascertained in the following way: discussion with patient. Care Teams Awake Overnight Monitor Relationship Specialty Start Date End Date Richard Fitzgerald MD [address] [place] [address] PCP - General Hematology and Oncology 11/20/19
--- OUTSIDE RECORDS SUMMARY | 2025-01-17 15:43 | XMS_ITS | Clinical Summary ---
Author Organization [facility] Address [address] [place] [address] Phone Care Team Providers Care Punch Press Operator Name Role Phone Nicole Nolasco [facility] Primary Care Provider Allergies No known active allergies Medications DULoxetine (CYMBALTA) [address] capsule Take 1 capsule (30 mg total) by mouth 1 (one) time each day. Do not crush or chew. Active topiramate (TOPAMAX) 25 mg tablet Take 1 tablet (25 mg total) by mouth 2 (two) times a day. Active Encounters Date Type Department Care Team Description 11/05/2024 3:00 PM EDT Consult Orthopedic Surgery - [place] [address] [facility] [address] [place] [address] Jazmín Valdovinos MD Ballesteros's cyst of knee, left from Last 3 Months Surgical History Surgery Date Site/Laterality Comments FOOT SURGERY PROCEDURE:FOOT SURGERY ARTHRODESIS 09/27/2019 Left PROCEDURE:ARTHRODESIS;COMMENT:Proced ure: LEFT FOOT OPEN REDUCTION OF LISFRANC WITH FUSION OF THE 1ST AND 2ND TMT; Surgeon: Chen Floyd DPM; Location: [facility] MAIN OPERATING ROOM; Service: Podiatry; Laterality: Left; ANKLE FRACTURE SURGERY 09/27/2019 Left PROCEDURE:ANKLE FRACTURE SURGERY;COMMENT:Procedure: LEFT ANKLE ORIF BIMALLEOLAR FRACTURE,; Surgeon: Chen Floyd DPM; Location: [facility] RO[facility]; Service: Podiatry; Laterality: Left; BONE GRAFT 09/27/2019 Left PROCEDURE:BONE GRAFT;COMMENT:Procedure: HARVEST BONE GRAFT; Surgeon: Chen Floyd DPM; Location: [facility]ATING RO[facility]; Service: Podiatry; Laterality: Left; CERVICAL LAMINECTOMY 10/21/2020 Posterior PROCEDURE:CERVICAL LAMINECTOMY;COMMENT:Procedure: L3-4, L4-5, L5-S1 LAMINECTOMY, FACETECTOMY, AND FORAMINOTOMY ADDITIONAL VERTEBRAL SEGMENT LUMBAR; Surgeon: Blayne Steel MD; Location: [facility]PERATING RO[facility]; Service: Spine; Laterality: Posterior; LUMBAR LAMINECTOMY PROCEDURE:LUMBAR LAMINECTOMY;COMMENT:patient did not have cervical laminectomy FLEXIBLE SIGMOIDOSCOPY 09/29/2021 N/A PROCEDURE:FLEXIBLE SIGMOIDOSCOPY;COMMENT:Procedure: RECTAL EUS; Surgeon: Giuseppe Garcia MD; Location: [facility] ENDOSCOPY; Service: Gastroenterology; Laterality: N/A; FLEXIBLE SIGMOIDOSCOPY 09/29/2021 N/A PROCEDURE:FLEXIBLE SIGMOIDOSCOPY;COMMENT:Procedure: FLEXIBLE SIGMOIDOSCOPY; Surgeon: Giuseppe Garcia MD; Location: [facility]; Service: Gastroenterology; Laterality: N/A; Medical History Medical History Date Comments Hyperlipidemia DX:Hyperlipidemi a Lumbar spinal stenosis DX:Lumbar spinal stenosis Family History Medical History Relation Name Comments No Known Problems Father No Known Problems Mother Bone cancer Neg Hx Colon cancer Neg Hx Colon polyps Neg Hx Relation Name Status Comments Father Mother Social History Tobacco Use Types Packs/Day Years Used Date Smoking Tobacco: Former Cigarettes Q uit: 10/16/2019 Smokeless Tobacco: Never Alcohol Use Standard Drinks/Week Comments No 0 (1 standard drink = 0.6 oz pur e alcohol) Sex and Gender Information Value Date Recorded Sex Assigned at Not on file Legal Sex Male 8:06 AM EST Gender Identity Not on file Sexual Orientation Not on file Obstetrics History Last Filed Vital Signs Vital Sign Reading Time Taken Comments Blood Pressure 130/80 08/27/2021 1:15 PM EDT Pulse 80 08/27/2021 1:15 PM EDT Temperature - - Respiratory Rate - - Oxygen Saturation - - Inhaled Oxygen Concentration - - Weight 74.4 kg (164 lb) 11/05/2024 3:05 PM EDT Height 162.6 cm (5' 4 ) 11/05/2024 3:05 PM EDT Body Mass Index 28.15 11/05/2024 3:05 PM EDT Plan of Treatment Health Maintenance Due Date Last Done Comments Hepatitis B Vaccines (1 of 3 - 19+ 3-dose series) 1991 Social Influencers of Health Screening 03/27/2022 Depression Screening 04/24/2024 Pneumococcal Vaccine: 50+ Years (3 of 3 - PCV20 or PCV21) 05/27/2024 05/27/2019, 01/29/2016 COVID-19 Vaccine (5 - season) 2024 11/29/2022, 04/19/2021, 09/02/2020, Additional history exists Influenza Vaccine (#1) 2024 , 02/04/2021, 01/11/2020, Additional history exists Colorectal Cancer Screening: Sigmoidoscopy 09/29/2026 09/29/2021, 09/29/2021 DTaP,Tdap,and Td Vaccines (3 - Td or Tdap) 07/15/2027 07/14/2017, 11/28/2014 Cholesterol Screening (Lipid Panel) 11/30/2028 12/01/2023, 12/01/2023, 11/29/2022, Additional history exists HIV Screening Completed 02/01/2018 Hepatitis C Screening Completed 11/29/2022 Zoster Vaccines Completed 11/30/2023, 11/29/2022 HIB Vaccines Aged Out No longer eligi ble based on patient's age to complete this topic HPV Vaccines Aged Out No longer eligi ble based on patient's age to complete this topic Hepatitis A Vaccines Aged Out No long er eligible based on patient's age to complete this topic IPV Vaccines Aged Out No longer eligi ble based on patient's age to complete this topic MMR Vaccines Aged Out No longer eligi ble based on patient's age to complete this topic Meningococcal ACWY Vaccine Aged Out N o longer eligible based on patient's age to complete this topic Meningococcal B Vaccine Aged Out No l onger eligible based on patient's age to complete this topic RSV Immunization Patients Under 20 months Aged Out No longer eligible based on patient's age to complete this topic Varicella Vaccines Aged Out No longer eligible based on patient's age to complete this topic Medical Devices Implanted Type Area Literacy Consultant Device Identifier Shelf Expiration Date Model / Serial / Lot Graft Skin Amnioband L3cm X W2cm Allograft (6tsqcm) - [id number] - [id number] Implanted:Qty: 6 on 10/23/2019 by Chen Floyd DPM Implants Left: Foot MUSCULOSKELETAL TRANSPLANT FND 01/01/2022 [id number] / [id number] / Sponge Surgiflo 8ml Hemostatic Matrix Absorbable Latex Free - [id number] Implanted:Qty: 3 on 10/21/2020 by Blayne Steel MD Implants N/A: Spine Lumbar [employer] 05/24/2022 [id number] / / [id number] Device Vistaseal 4ml Closure - [id number] Implanted:Qty: 1 on 10/21/2020 by Blayne Steel MD Implants N/A: Spine Lumbar [employer] 02/23/2022 [id number] / / [id number] Screw Asnis Iii Partial Thread 60mm 4mm Yolanda Self Drilling - [id number] Implanted:Qty: 1 on 09/27/2019 by Chen Floyd DPM Left: Ankle [employer] [id number] / / 2.4mm Narrow Locking Plates Implanted:Qty: 1 on 09/27/2019 by Chen Floyd DPM Left: Ankle [id number] / / Plate Bone Variax Narrow T L47 Mm 5 Hole Lock Nonsterile - [id number] Implanted:Qty: 1 on 09/27/2019 by Chen Floyd DPM Left: Ankle [employer]STE[employer]ICS [id number] / / Screw Asnis Iii Partial Thread 44mm 4mm Yolanda Low Profile - [id number] Implanted:Qty: 1 on 09/27/2019 by Chen Floyd DPM Left: Ankle [employer]STE[employer]ICS [id number] / / Screw Locking T10 3.5mm X 14mm - [id number] Implanted:Qty: 5 on 09/27/2019 by Chen Floyd DPM Left: Ankle [employer] [id number] / / 1/3 Tubular Plate Implanted:Qty: 1 on 09/27/2019 by Chen Floyd DPM Left: Ankle AMALIA - MEDICAL [id number] / / Vivigen Cellular Bone 1cc - [id number] - [id number] Implanted:Qty: 1 on 09/27/2019 by Chen Floyd DPM Left: Ankle LIF[employer]ET 09/11/2020 BL-1600-0 01 / [id number] / BL-1600-0 01 Screw Bone Variax T8 F-Thread L16 Mm Od2.7 Mm Foot Ankle - [id number] Implanted:Qty: 2 on 09/27/2019 by Chen Floyd DPM Left: Ankle [employer]STE[employer]ICS [id number] / / 2.7mm Locking Screws Implanted:Qty: 1 on 09/27/2019 by Chen Floyd DPM Left: Ankle [id number] / / Screw Bone Variax T8 L13 Mm Od2.7 Mm Lock Nonsterile - [id number] Implanted:Qty: 1 on 09/27/2019 by Chen Floyd DPM Left: Ankle [employer]ICS [id number] / / Screw Bone T8 Full Thread L16 Mm Od2.4 Mm Lock Stardrive - [id number] Implanted:Qty: 2 on 09/27/2019 by Chen Floyd DPM Left: Ankle [employer]STEONICS [id number] / / Procedures Procedure Name Priority Date/Time Associated Diagnosis Comments XR KNEE 3 VIEWS LEFT Routine 11/05/2024 3:15 PM EDT Ballesteros's cyst of knee, left from Last 3 Months Results * XR Knee 3 Views Left (11/05/2024 3:15 PM EDT) Anatomical Region Laterality Modality Lower Extremities, Knee Left Computed Radiography 11/05/2024 4:16 PM EDT Impressions 11/05/2024 4:19 PM EDT Minor degenerative changes at the patellofemoral joint. POS - [id number] -------- FINAL REPORT -------- Dictated By: Mei Maldonado Dictated Date: 11/05/2024 16:16 ET Assigned Physician: Mei Maldonado Reviewed and Electronically Signed By: Mei Maldonado Signed Date: 11/05/2024 16:19 ET Workstation ID: [id number] Transcribed By: Self Edit Transcribed Date: 11/05/2024 16:16 ET Narrative 11/05/2024 4:19 PM EDT EXAM: Left knee x-ray HISTORY: Left knee pain. COMPARISON: None VIEWS: 3 views performed, PA view performed weightbearing. FINDINGS: Tricompartment joint spaces are maintained. Minimal posterior patellar spurring. No evidence of an acute fracture or malalignment. No destructive bone lesion. No significant joint effusion. Procedure Note Mei Maldonado MD - 11/05/2024 EXAM: Left knee x-ray HISTORY: Left knee pain. COMPARISON: None VIEWS: 3 views performed, PA view performed weightbearing. FINDINGS: Tricompartment joint spaces are maintained. Minimal posterior patellarspurring. No evidence of an acute fracture or malalignment. No destructivebone lesion. No significant joint effusion. IMPRESSION: Minor degenerative changes at the patellofemoral joint. POS - [id number] -------- FINAL REPORT -------- Dictated By: Mei Maldonado Dictated Date: 11/05/2024 16:16 ET Assigned Physician: Mei Maldonado Reviewed and Electronically Signed By: Mei Maldonado Signed Date: 11/05/2024 16:19 ET Workstation ID: [id number] Transcribed By: Self Edit Transcribed Date: 11/05/2024 16:16 ET us Jazmín Valdovinos MD IMG XR PROCEDURES Final Result from Last 3 Months Insurance MEDICAID - [place] [facility] Care Teams Punch Press Operator Relationship Specialty Start Date End Date Nicole Nolasco FNP [address] [place] [address] PCP - General Family Medicine 08/28/24
--- OUTSIDE RECORDS SUMMARY | 2025-01-17 15:43 | XMS_ITS | Encounter Summary ---
Author Organization [facility] Address [address] [place] [address] Care Team Providers Care Depositing Machine Operator Name Role Phone Pcp, No Primary Care Provider Unavailabl e Reason for Visit * Reason Comments Medication Refill Encounter Details Date Type Department Care Team ([facility] st Contact Info) Description 09/02/2022 Refill [facility] [address] [facility] [address] [place] [id number] Chau Alonzo MD 31 [facility] [address] [place] [address] Causalgia of left lower limb Social History [...] limb documented in this encounter Care Teams Depositing Machine Operator Relationship Specialty Start Date End Date Pcp, No PCP - General General Medicine 04/04/24 documented as of this encounter
== END 2025-01-17 15:58 | disposition home or self-care (01) ==
LOC: HO.HUSH 15:09
PROVIDERS: Visit Provider Urology
DX: N31.9 Neuromuscular dysfunction of bladder, unspecified (principal); R39.15 Urgency of urination; R32 Unspecified urinary incontinence
CPT/HCPCS: 99213

== ENCOUNTER → 2025-01-17 15:09 | Outpatient (BNVA) | payer BC, MEDICAID, SELFPAY | PROVIDERS: Visit Provider Urology | DX: R31.9 Hematuria, unspecified (principal) | CPT/HCPCS: 51798; 81003 ==